=== PATIENT | male | born 1965 | race Caucasian/White ===

== ENCOUNTER 2019-01-08 23:49 | Emergency (ER) | payer BC ==
[2019-01-09] MEDS ORDERED: Lidocaine 1%** 5 ML VIAL INJ ONE (00:02)
[2019-01-09] MEDS ORDERED: Tetan/Diph/Pertus SYR(Tdap)* 0.5 ML SYR(BOOSTRIX) use SYR IM ONE (00:02)
[2019-01-09] MEDS ORDERED: Lidocaine 1%** 5 ML VIAL ONE (00:03)
--- NOTE | 2019-01-09 00:33 | ED ---
Laceration/Wound HPI - HPI Summary HPI Summary: 53-year-old male presents with laceration to left middle finger today. He states he cut it on a knife. Area continues to bleed. No foreign body. Tetanus up-to-date. Has no medical conditions. 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 No numbness or tingling. - History of Current Complaint Stated Complaint: LEFT FINGER LACERATION PER PT Time Seen by Provider: 01/08/19 23:54 Pain Intensity: 2 - Allergy/Home Medications Allergies/Adverse Reactions: Allergies Allergy/AdvReac Type Severity Reaction Status Date / Time No Known Allergies Allergy Verified 01/08/19 23:52 PMH/Surg Hx/FS Hx/Imm Hx Endocrine/Hematology History: Denies: Hx Anticoagulant Therapy Respiratory History: Denies: Hx Asthma Infectious Disease History: No Infectious Disease History: Denies: Traveled Outside the [place] in Last 30 Days - Family History Known Family History: Positive: Non-Contributory - Social History Alcohol Use: Occasionally Substance Use Type: Reports: None Smoking Status (MU): Never Smoked Tobacco Review of Systems Negative: Fever Negative: Chest Pain Negative: Shortness Of Breath Positive: Myalgia - left middle finger laceration All Other Systems Reviewed And Are Negative: Yes Physical Exam Triage Information Reviewed: Yes Vital Signs On Initial Exam: Initial Vitals Temp Pulse Resp BP Pulse Ox 97.1 F 108 20 152/95 95 01/08/19 23:50 01/08/19 23:50 01/08/19 23:50 01/08/19 23:50 01/08/19 23:50 Vital Signs Reviewed: Yes Appearance: Positive: Well-Appearing Skin: Positive: Warm, Dry, Other - 3cm irregular laceration to left middle finger Head/Face: Positive: Normal Head/Face Inspection Eyes: Positive: Normal, Conjunctiva Clear ENT: Positive: Pharynx normal Respiratory/Lung Sounds: Positive: Clear to Auscultation, Breath Sounds Present Cardiovascular: Positive: Normal, RRR Musculoskeletal: Positive: Normal Neurological: Positive: Normal Psychiatric: Positive: Normal Procedures - Laceration/Wound Repair 1 Location: Other - left middle finger Description: Irregular Anesthesia: Local, 1.0% Length, Depth and Shape: 3cm by 1/2cm irregular laceration Irrigated w/ Saline (ccs): 100 Closure: Single Layer Suture Type: Prolene Number of Sutures: 4 Diagnostics - Vital Signs Vital Signs Temp Pulse Resp BP Pulse Ox 01/08/19 23:50 97.1 F 108 20 152/95 95 - Laboratory Lab Statement: Any lab studies that have been ordered have been reviewed, and results considered in the medical decision making process. Laceration Repair Course/Dx - Course Course Of Treatment: 53-year-old male presents with laceration to left middle finger today. He states he cut it on a knife. Area continues to bleed. No foreign body. Tetanus up-to-date. Has no medical conditions. 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 No numbness or tingling. On exam has 3 cm irregular laceration of left middle finger. Full range of motion. Clean area and placed 4 sutures. Told to keep area clean and dry. Patient understands agrees with plan. - Differential Dx Differental Diagnoses: Abrasion, Avulsion, Laceration - Clinical Impression Provider Diagnoses: Laceration of left middle finger Discharge - Sign-Out/Discharge Documenting (check all that apply): Patient Departure Patient Received Moderate/Deep Sedation with Procedure: No - Discharge Plan Condition: Good Disposition: HOME Patient Education Materials: Care For Your Stitches (ED) Referrals: No Primary Care Phys,NOPCP [Primary Care Provider] - Additional Instructions: Take Tylenol or ibuprofen for pain every 6 hours as needed Keep area clean and dry for 24 hours Return to ED or primary in 8-10 days to have sutures removed Return to ED if develop signs of infection such as fever, spreading redness, or pus. - Billing Disposition and Condition Condition: GOOD Disposition: Home
[2019-01-09 00:53] VITALS: BP 0/0
== END 2019-01-09 00:52 | disposition home or self-care (01) ==
LOC: ED 23:49
DX: S61.213A Laceration without foreign body of left middle finger without damage to nail, initial encounter (principal); W26.0XXA Contact with knife, initial encounter; Y92.9 Unspecified place or not applicable
CPT/HCPCS: 12002; 90471; 90715; 99282